=== PATIENT | female | born 2000 | race Caucasian/White ===

== ENCOUNTER 2021-07-09 21:56 | Emergency (ER) | payer BC, MEDICAID ==
[~2021-07-09] VITALS: Ht 157.5 cm; Wt 104.8 kg
[2021-07-09] MEDS ORDERED: morphine INJ 10 MG/ML 1ML (SYR OR VIAL) IVP STA (22:07)
[2021-07-09] MEDS ORDERED: TETANUS,DIPTH,PERTUSS P/F (BOOSTRIX) 0.5 ML VIAL IM ONE (22:15)
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
[2021-07-09 22:22] LABS: HEMATOCRIT 39 % (35-52); HEMOGLOBIN 13.1 g/dL (11.5-16.0); MEAN CORPUSCULAR HEMOGLOBIN 31 pg (25-34); MEAN CORPUSCULAR HGB CONC 34 g/dL (32-36); MEAN CORPUSCULAR VOLUME 91 fL (80-99); MEAN PLATELET VOLUME 9.5 fL (9.0-12.2); PLATELET COUNT 356 10^3/uL (130-400); WHITE BLOOD COUNT 17.6 10^3/uL (4.3-11.0)
[2021-07-09 22:36] LABS: CHLORIDE 106 MMOL/L (98-107); POTASSIUM 3.5 MMOL/L (3.6-5.0); SODIUM 139 MMOL/L (135-145)
[2021-07-09 22:38] LABS: CALCIUM 9.4 MG/DL (8.5-10.1)
[2021-07-09 22:39] LABS: GLUCOSE 126 MG/DL (70-105); TOTAL PROTEIN 7.4 GM/DL (6.4-8.2)
[2021-07-09 22:40] LABS: BILIRUBIN,TOTAL 0.5 MG/DL (0.1-1.0); CARBON DIOXIDE 20 MMOL/L (21-32)
[2021-07-09 22:42] LABS: ALKALINE PHOSPHATASE 76 U/L (40-136)
[2021-07-09 22:43] LABS: CREATININE SERUM 1.02 MG/DL (0.60-1.30); GFR ESTIMATED 80
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
[2021-07-09 22:44] LABS: BILIRUBIN,DIRECT 0.2 MG/DL (0.0-0.3); BILIRUBIN,INDIRECT 0.3 MG/DL; BUN/CREATININE RATIO 17
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
[2021-07-09 22:46] LABS: ALANINE AMINOTRANSFERASE 29 U/L (0-55)
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
[2021-07-09] MEDS ORDERED: ONDANSETRON 4 MG/2 ML (SDV) Z0FRAN IVP ONE (23:00)
[2021-07-09] MEDS ORDERED: NS IV 1000 ML 1,000 ML IV SCH (23:00)
[2021-07-09] MEDS ORDERED: ETOMIDATE IV SOLN 20 MG/10 ML VIAL IV ONE (23:00)
[2021-07-09] MEDS ORDERED: NS 100 ML (IVPB) BAG IV ONE (23:15)
[2021-07-09] MEDS ORDERED: IOHEXOL 350 MG/ML 100 ML (OMNIPAQUE 350) VIAL IV ONE (23:15)
[2021-07-09] MEDS ORDERED: HOLD METFORMIN - RECEIVED CONTRAST 20 ML VIAL IV SCH (23:15)
[2021-07-09] MEDS ORDERED: ACHD5005 PO (23:32)
[2021-07-10] MEDS ORDERED: morphine INJ 10 MG/ML 1ML (SYR OR VIAL) IVP STA (00:10)
[2021-07-10] MEDS ORDERED: TETANUS,DIPTH,PERTUSS P/F (BOOSTRIX) 0.5 ML VIAL IM ONE (00:17)
[2021-07-10 01:32] VITALS: BP 172/104
--- NOTE | 2021-07-10 06:04 | Diagnostic Imaging Report ---
INDICATION: Post reduction. Compared with radiographs of earlier this same date. FINDINGS: A splint has been placed and there has been closed reduction. There is very slight widening of the lateral ankle mortise markedly improved from prior. Tibiotalar joint no longer dislocated. On the lateral view, no substantial asymmetry in the tibiotalar joint anterior to posterior found. IMPRESSION: Successful reduction of the tibiotalar dislocation. There is slight widening of the ankle mortise laterally. No detectable fracture. Bony detail limited by overlying splint. Dictated by: Dictated on workstation # [id number]
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
== END 2021-07-10 01:32 | disposition home or self-care (01) ==
LOC: ER 21:58
DX: S82.831A Other fracture of upper and lower end of right fibula, initial encounter for closed fracture (principal); S01.01XA Laceration without foreign body of scalp, initial encounter; S93.04XA Dislocation of right ankle joint, initial encounter; M23.91 Unspecified internal derangement of right knee; B20 Human immunodeficiency virus [HIV] disease; V89.2XXA Person injured in unspecified motor-vehicle accident, traffic, initial encounter
CPT/HCPCS: 12032; 29515; 70450; 71045; 71260; 72125; 72170; 73552; 73562; 73600; 73610; 73630; 74177; 80048; 80076; 84703; 85027; 86850; 86900; 86901; 93041; 99291; 99292; G0390; G0480; 36415; 80320; 90715

== ENCOUNTER 2021-07-16 12:02 | Emergency (ER) | payer BC, MEDICAID ==
[~2021-07-16] VITALS: Ht 157.5 cm; Wt 108.0 kg
[~2021-07-16 12:02] MED LIST: ACHD5005 PO
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
[2021-07-16] MEDS ORDERED: oxyCODONE/APAP 5/325MG (PERCOCET 5) TABLET PO ONE (13:45)
--- NOTE | 2021-07-16 13:47 | Diagnostic Imaging Report ---
EXAMINATION: US Right Lower Extremity Venous Duplex. TECHNIQUE: Multiple real-time grayscale images were obtained over the right lower extremity in various projections. Additional spectral analysis and color Doppler duplex images were also obtained. HISTORY: Right leg pain and edema. COMPARISON: None available. FINDINGS: The right common femoral vein, deep femoral vein, superficial femoral vein and popliteal vein are patent with normal bermudez scale and doppler appearance. There is normal respiratory variation and augmentation. IMPRESSION: 1. No DVT of the right lower extremity. Dictated by: Dictated on workstation # [id number]
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
[2021-07-16] MEDS ORDERED: OXYC1TAB87 PO (14:34)
[2021-07-16 14:52] VITALS: BP 127/65
== END 2021-07-16 14:52 | disposition home or self-care (01) ==
LOC: EDUNIT# 12:02 → ER 12:03
DX: S82.831A Other fracture of upper and lower end of right fibula, initial encounter for closed fracture (principal); S93.04XA Dislocation of right ankle joint, initial encounter; M23.91 Unspecified internal derangement of right knee; X58.XXXA Exposure to other specified factors, initial encounter
CPT/HCPCS: 73721

== ENCOUNTER → 2021-07-29 | Outpatient (CLI) | payer BC, MEDICAID ==
[~2021-07-29] MED LIST changes: +OXYC1TAB87 PO
--- NOTE | 2021-07-29 10:56 | Diagnostic Imaging Report ---
INDICATION: Ankle pain. COMPARISON: 07/09/2021. TECHNIQUE: Three radiographs of the right ankle dated 07/29/2021. FINDINGS: Small calcifications are identified adjacent to the tip of the medial malleolus and medial aspect of the talus, felt to relate to small fracture fragments. Significant asymmetry of the ankle mortise is again noted with widening laterally. The talar dome appears intact. Soft tissue swelling about the ankle. No suspicious radiopaque foreign body. IMPRESSION: Tiny fractures of the medial malleolus and potentially tiny fractures involving the medial aspect of the talus are again identified. Asymmetry of the ankle mortise, consistent with underlying ligamentous injury. This could be further evaluated with dedicated MR imaging of the right ankle. Soft tissue swelling about the ankle. Dictated by: Dictated on workstation # [id number]
== END ==
LOC: ORTHO 10:02
PROVIDERS: ATTEND Orthopaedic Surgery
DX: S82.51XA Displaced fracture of medial malleolus of right tibia, initial encounter for closed fracture (principal); X58.XXXA Exposure to other specified factors, initial encounter
CPT/HCPCS: 73610; G0463; 99203

== ENCOUNTER → 2021-08-06 | Outpatient (CLI) | payer BC, MEDICAID ==
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
== END ==
LOC: RAD 14:45
PROVIDERS: ATTEND Orthopaedic Surgery
DX: S93.431A Sprain of tibiofibular ligament of right ankle, initial encounter (principal); S93.411A Sprain of calcaneofibular ligament of right ankle, initial encounter; S90.01XA Contusion of right ankle, initial encounter; V89.2XXA Person injured in unspecified motor-vehicle accident, traffic, initial encounter
CPT/HCPCS: 73721

== ENCOUNTER → 2021-09-02 | Outpatient (CLI) | payer BC, MEDICAID | LOC: ORTHO 13:30 | PROVIDERS: ATTEND Orthopaedic Surgery | DX: S93.401D Sprain of unspecified ligament of right ankle, subsequent encounter (principal); X58.XXXD Exposure to other specified factors, subsequent encounter | CPT/HCPCS: 99213 ==

== ENCOUNTER → 2021-10-14 | Outpatient (CLI) | payer BC, MEDICAID | LOC: ORTHO 14:10 | PROVIDERS: ATTEND Orthopaedic Surgery | DX: S93.401D Sprain of unspecified ligament of right ankle, subsequent encounter (principal); X58.XXXD Exposure to other specified factors, subsequent encounter | CPT/HCPCS: 99213 ==